=== PATIENT | female | born 1995 | race African-American/Black ===

== ENCOUNTER 2019-04-17 10:48 | Emergency (ER) | payer BC ==
[~2019-04-17] VITALS: Ht 160 cm; Wt 56.7 kg
== END 2019-04-17 15:03 | disposition home or self-care (01) ==
LOC: ER 10:48
DX: O46.8X1 Other antepartum hemorrhage, first trimester (principal); O36.80X1 Pregnancy with inconclusive fetal viability, fetus 1; O26.853 Spotting complicating pregnancy, third trimester